=== PATIENT | female | born 1990 | race Caucasian/White ===

== ENCOUNTER 2017-04-06 19:43 | Emergency (ER) | payer OTHER ==
[~2017-04-06] VITALS: Ht 157.5 cm; Wt 45.5 kg
[~2017-04-06 19:43] MED LIST: BUPR2SUB SL; FRRS300 PO; PRENTAB26 PO
[2017-04-06 19:46] VITALS: Ht 157.5 cm; Wt 45.5 kg
[2017-04-06] MEDS ORDERED: BUPR8SUB19 SL (19:59)
[2017-04-06] MEDS ORDERED: CIPR1TAB11 PO (19:59)
[2017-04-06 20:11] LABS: URINE APPEARANCE CLEAR (CLEAR); URINE BILIRUBIN NEG (NEG); URINE COLOR YELLOW; URINE NITRITE NEG (NEG); URINE SPECIFIC GRAVITY 1.003 (1.000-1.030); UROBILINOGEN NEG (NEG); ZZUR CULT IF INDIC CLEAN CATCH NO
[2017-04-06 20:13] LABS: MANUAL MICROSCOPIC REQUIRED? NO; REVIEW REQ? NO
--- NOTE | 2017-04-06 20:52 | DIAGNOSTIC IMAGING REPORT ---
L-SPINE MIN 4 VIEWS ROUTINE HISTORY: Pain Left low back pain COMPARISON: None. FINDINGS: There is no fracture. Mild scoliosis. Disc spaces are preserved. IMPRESSION: Mild scoliosis. Otherwise negative study The above report was generated using voice recognition software. It may contain grammatical, syntax or spelling errors. Electronically signed by: Bladimir Garrison M.D. 04/06/2017 8:50 PM Dictated Date/Time: 04/06/2017 8:49 PM
[2017-04-06 21:00] VITALS: BP 127/89; PULSE 83; TEMP 37.1; O2SAT 100
--- NOTE | 2017-04-07 00:13 | EMERGENCY ROOM VISIT NOTE ---
History First contact with patient: 19:50 Chief Complaint: URINARY SYMPTOMS Stated Complaint: KIDNEYS IN PAIN AFTER DAYS OF UTI AND PILLS THAT D Nursing Triage Summary: Triage Notes: Patient states "I had a UTI for like a week. I went to [facility] in [place]. They gave me Cipro for it, the first day I threw up and got really sick and really hot. The next day I was still having UTI symptoms." Patient had hx ARF years ago. History of Present Illness The patient is a 27 year old female who presents to the Emergency Room with complaints of kidney pain for the past week. The patient states that she went to an urgent care clinic where she was given Cipro. The patient states that she had vomiting after taking Cipro, and did not complete the antibiotics. She is not complaining of dysuria, but does have urinary frequency. The patient rates her discomfort a 7/10. Review of Systems More than 10 systems were reviewed and otherwise negative with the exception of history of present illness. Past Medical/Surgical History No pertinent chronic medical disease Family History Cancer FH: heart disease FHx: lung disease Hypertension Social History Smoking Status: Light Tobacco Smoker Marital Status: Housing Status: lives with significant other Occupation Status: employed Current/Historical Medications Scheduled Buprenorphine Hcl (Subutex), 0.33 TAB SL TID Ciprofloxacin Tab (Cipro), 1 TAB PO Q12 Allergies Coded Allergies: Latex (Verified Allergy, Mild, RASH, 04/14/15) Physical Exam Vital Signs Date Time Temp Pulse Resp B/P (MAP) Pulse Ox O2 Delivery O2 Flow Rate FiO2 04/06/17 21:00 37.1 83 18 127/89 100 04/06/17 19:46 37.1 83 18 127/89 100 Room Air Pain Rating (0-10): 0 Physical Exam VITALS: Vitals are noted on the nurse's note and reviewed by myself. Vital signs stable. GENERAL: Well-developed, well-nourished, white female, who is in no acute distress and resting comfortably. Patient is cooperative with the examination. HEAD: Normocephalic atraumatic. HEART: Regular rate and rhythm without murmurs gallops or rubs. LUNGS: Clear to auscultation bilaterally without wheezes, rales or rhonchi. No retractions or accessory muscle use. ABDOMEN: Positive normal bowel sounds x 4. Soft, nontender, without masses or organomegaly. No guarding or rebound tenderness. No CVA tenderness. MUSCULOSKELETAL: No muscle atrophy, erythema, or edema noted. Full range of motion without joint tenderness in all extremities. Negative straight leg raise bilateral. Normal DTRs Medical Decision & Procedures ER Provider Diagnostic Interpretation: L-SPINE MIN 4 VIEWS ROUTINE HISTORY: Pain Left low back pain COMPARISON: None. FINDINGS: There is no fracture. Mild scoliosis. Disc spaces are preserved. IMPRESSION: Mild scoliosis. Otherwise negative study Laboratory Results Test 04/06/17 19:50 Urine Color YELLOW Urine Appearance CLEAR (CLEAR) Urine pH 8.0 (4.5-7.5) Urine Specific [place] 1.003 (1.000-1.030) Urine Protein NEG (NEG) Urine Glucose (UA) NEG (NEG) Urine Ketones NEG (NEG) Urine Occult Blood NEG (NEG) Urine Nitrite NEG (NEG) Urine Bilirubin NEG (NEG) Urine Urobilinogen NEG (NEG) Urine Leukocyte Esterase NEG (NEG) Urine Test NEG (NEG) ED Course Physical exam and history were performed. Nursing notes, EMR, and Medication List were personally reviewed. Patient appears to have 'kidney pain' and a UTI for the past week. The patient identifies her maximal pain at her left side SI joint, much lower than the anatomic region where her kidney would be. She insists this is where her kidney pain is, and feels that she has a UTI. Urinalysis was performed and was negative for . She also is without evidence of UTI. I did perform plain films of the low back, and these were also unremarkable. Overall I suspect the patient's symptoms are musculoskeletal in nature and not reflective of an infectious process. She is on Subutex, and despite this did ask for pain medication. I explained that [id number] NSAIDs was appropriate, and that she may continue her Subutex as prescribed. The patient was dissatisfied with this and was angry that I was not providing her additional medication. The patient requested immediate discharge, and this was performed. She was invited back to the ER with any new, worsening, or concerning symptoms. The chart was completed utilizing [employer] Voice Recognition Software. Grammatical errors, random word insertions, pronoun errors, and incomplete sentences are an occasional consequence of this system due to software limitations, ambient noise, and hardware issues. Any formal questions or concerns about the content, text, or information contained within the body of this dictation should be directly addressed to the provider for clarification. . Medical Decision Differential diagnosis includes, but is not limited to: Low back pain, UTI, pyelonephritis, drug-seeking, ureteral calculi, DESK[employer] PUBL[employer]ING [employer] etiology, and others Impression Primary Impression: Low back pain Additional Impression: Symptoms involving urinary system Departure Information Dispostion Home / Self-Care Condition GOOD Forms HOME CARE DOCUMENTATION FORM, IMPORTANT VISIT INFORMATION Patient Instructions [facility] Additional Instructions You were seen and evaluated today on an emergency basis only. This is not a substitute for, or an effort to provide, complete comprehensive medical care. It is not possible to recognize and treat all injuries or illnesses in a single emergency department visit. For this reason it is recommended that you followup with your primary care physician next week for ongoing care and evaluation. For baseline pain relief you may alternate ibuprofen and acetaminophen every 4 hours for pain control. Take 600 mg ibuprofen (Advil) and then 4 hours later take 1000 mg acetaminophen (Tylenol). Do not take more than 3000 mg acetaminophen in a single day. You are welcome to return to the emergency department anytime with new, worsening, or concerning symptoms. Problem Qualifiers
== END 2017-04-06 21:03 | disposition home or self-care (01) ==
LOC: C.EDB 19:44 → C.EDD 21:03
DX: M54.5 Low back pain (principal); R39.9 Unspecified symptoms and signs involving the genitourinary system; F17.200 Nicotine dependence, unspecified, uncomplicated; Z82.49 Family history of ischemic heart disease and other diseases of the circulatory system

== ENCOUNTER 2018-04-30 11:46 | Emergency (ER) | payer OTHER ==
[~2018-04-30] VITALS: Ht 157.5 cm; Wt 50.2 kg
[~2018-04-30 11:46] MED LIST changes: -BUPR2SUB SL; +BUPR8SUB19 SL; +CIPR1TAB11 PO; -FRRS300 PO; -PRENTAB26 PO
[2018-04-30 11:49] VITALS: TEMP 36.7; Ht 157.5 cm; Wt 50.2 kg
[2018-04-30] MEDS ORDERED: SODIUM CHLORIDE 0.9% 1000ML 1,000 ML IV STA (12:07)
[2018-04-30] MEDS ORDERED: ONDANSETRON INJ 2 MG/ML 2 ML VIAL IV STA (12:42)
[2018-04-30 12:43] LABS: BASO % 0.6 %; BASO ABS # 0.04 K/uL (0-0.2); EOS % 3.3 %; EOS ABS # 0.23 K/uL (0-0.5); HEMATOCRIT 40.1 % (37-47); HEMOGLOBIN 13.5 g/dL (12.0-16.0); IG# 0.03 K/uL (0.00-0.02); LYMPH % 34.4 %; LYMPH ABS # 2.39 K/uL (1.2-3.4); MEAN CELL VOLUME 93.9 fL (80-100); MEAN CORPUSCULAR HEMOGLOBIN 31.6 pg (25-34); MEAN CORPUSCULAR HGB CONC 33.7 g/dl (32-36); MEAN PLATELET VOLUME 10.5 fL (7.4-10.4); MONO % 9.8 %; MONO ABS # 0.68 K/uL (0.11-0.59); NEUT % 51.5 %; NEUT ABS # 3.57 K/uL (1.4-6.5); PLATELET COUNT 238 K/uL (130-400); RED CELL DISTRIBUTION WIDTH CV 13.7 % (11.5-14.5); RED CELL DISTRIBUTION WIDTH SD 46.8 fL (36.4-46.3); WHITE BLOOD COUNT 6.94 K/uL (4.8-10.8)
--- NOTE | 2018-04-30 12:46 | EMERGENCY ROOM VISIT NOTE ---
ED Visit Note First contact with patient: 11:54 I have seen and examined this patient with Selma Garrison and generally agree with the treatment plan as discussed. Current/Historical Medications Scheduled Buprenorphine Hcl (Subutex), 0.33 TAB SL TID Ciprofloxacin Tab (Cipro), 1 TAB PO Q12 Allergies Coded Allergies: Latex (Verified Allergy, Mild, RASH, 04/14/15) Vital Signs Date Time Temp Pulse Resp B/P (MAP) Pulse Ox O2 Delivery O2 Flow Rate FiO2 04/30/18 11:49 36.7 98 20 112/75 97 Room Air Laboratory Results 04/30/18 12:25 Red Blood Count 4.27, Mean Corpuscular Volume 93.9, Mean Corpuscular Hemoglobin 31.6, Mean Corpuscular Hemoglobin Concent 33.7, Mean Platelet Volume 10.5, Neutrophils (%) (Auto) 51.5, Lymphocytes (%) (Auto) 34.4, Monocytes (%) (Auto) 9.8, Eosinophils (%) (Auto) 3.3, Basophils (%) (Auto) 0.6, Neutrophils # (Auto) 3.57, Lymphocytes # (Auto) 2.39, Monocytes # (Auto) 0.68, Eosinophils # (Auto) 0.23, Basophils # (Auto) 0.04 Test 04/30/18 12:20 04/30/18 12:25 White Blood Count 6.94 K/uL (4.8-10.8) Red Blood Count 4.27 M/uL (4.2-5.4) Hemoglobin 13.5 g/dL (12.0-16.0) Hematocrit 40.1 % (37-47) Mean Corpuscular Volume 93.9 fL (80-100) Mean Corpuscular Hemoglobin 31.6 pg (25-34) Mean Corpuscular Hemoglobin Concent 33.7 g/dl (32-36) Platelet Count 238 K/uL (130-400) Mean Platelet Volume 10.5 fL (7.4-10.4) Neutrophils (%) (Auto) 51.5 % Lymphocytes (%) (Auto) 34.4 % Monocytes (%) (Auto) 9.8 % Eosinophils (%) (Auto) 3.3 % Basophils (%) (Auto) 0.6 % Neutrophils # (Auto) 3.57 K/uL (1.4-6.5) Lymphocytes # (Auto) 2.39 K/uL (1.2-3.4) Monocytes # (Auto) 0.68 K/uL (0.11-0.59) Eosinophils # (Auto) 0.23 K/uL (0-0.5) Basophils # (Auto) 0.04 K/uL (0-0.2) RDW Standard Deviation 46.8 fL (36.4-46.3) RDW Coefficient of Variation 13.7 % (11.5-14.5) Immature Granulocyte % (Auto) 0.4 % Immature Granulocyte # (Auto) 0.03 K/uL (0.00-0.02) Medications Administered Medications (Trade) Dose Ordered Sig/Keshawn Route Start Time Stop Time Status Last Admin Dose Admin Sodium Chloride 1,000 ml @ 999 mls/hr Q1H1M STAT IV 04/30/18 12:07 04/30/18 13:07 04/30/18 12:30 999 MLS/HR Departure Information Referrals Viviana Aldrich DO (PCP) [facility] Instructions [facility]
[2018-04-30 13:04] LABS: ALBUMIN 3.8 gm/dl (3.4-5.0); CALCIUM 8.8 mg/dl (8.5-10.1); CREATININE 0.78 mg/dl (0.60-1.20); POTASSIUM 3.9 mmol/L (3.5-5.1); TOTAL PROTEIN 7.5 gm/dl (6.4-8.2)
[2018-04-30 14:04] VITALS: BP 111/65; PULSE 69; O2SAT 99
--- NOTE | 2018-04-30 14:05 | DIAGNOSTIC IMAGING REPORT ---
PELVIC ULTRASOUND CLINICAL HISTORY: Pelvic pain. COMPARISON STUDY: None. TECHNIQUE: Transabdominal and transvaginal sonography of the pelvis was performed. FINDINGS: The uterus measures 7.4 x 4.1 x 3 cm. Endometrium measures 5 mm in thickness. Incidental note is made of a few small nabothian cysts. The ovaries are normal. The right ovary measures 3.4 x 2.8 x 1.9 cm and the left ovary measures 2.3 x 2.4 x 1.6 cm. Color flow is identified within each ovary. There is no adnexal mass or free fluid. IMPRESSION: Unremarkable pelvic ultrasound. Electronically signed by: Demetris Gonzalez M.D. 04/30/2018 2:04 PM Dictated Date/Time: 04/30/2018 1:55 PM
--- NOTE | 2018-04-30 14:05 | DIAGNOSTIC IMAGING REPORT ---
PA CHEST WITH ABDOMINAL SERIES CLINICAL HISTORY: Generalized abdominal pain. FINDINGS: A PA chest radiograph is obtained. No prior studies are available for comparison at the time of dictation. The cardiomediastinal silhouette is unremarkable. The lungs and pleural spaces are clear. No pneumothorax is seen. The bony thorax is grossly intact. Supine and erect abdominal radiographs are compared to study dated 04/06/2017. There is a nonobstructed abdominal bowel gas pattern. No evidence of intraperitoneal free air is seen. There are no abnormal abdominal calcifications. Small phleboliths are observed in the pelvis. The lumbosacral spine and bony pelvis appear intact. IMPRESSION: 1. No active disease in the chest. 2. Nonobstructed abdominal bowel gas pattern. Electronically signed by: Jeison Dye M.D. 04/30/2018 2:04 PM Dictated Date/Time: 04/30/2018 1:53 PM
[2018-04-30] MEDS ORDERED: CHLO50TA6 PO (14:13)
[2018-04-30] MEDS ORDERED: 5-HT1CAP PO (14:13)
[2018-04-30] MEDS ORDERED: CYAN100073 PO (14:13)
[2018-04-30] MEDS ORDERED: ONDA4TAB10 SL (14:24)
--- NOTE | 2018-04-30 14:25 | EMERGENCY ROOM VISIT NOTE ---
History First contact with patient: 11:54 Chief Complaint: ABDOMINAL PAIN Stated Complaint: SEVERE ABD PAIN History of Present Illness The patient is a 28 year old female who presents to the Emergency Room with complaints of severe abdominal pain. The patient states that she has had abdominal pain for months. She is being seen by her PCP at [place] for her ongoing abdominal pain. The patient denies any fever, constipation, hematochezia or melena. The patient states that her stools are soft. The patient admits to nausea but denies any vomiting. The patient states that she came to the emergency room today because she had severe abdominal pain and pelvic pain which doubled her over and she could not stand up. She describes it as a stabbing pain. She rated it at a 10 out of 10. The patient states that she had some lab work performed for her family doctor but she did not get the results. She thinks he was mainly hormones levels because her menses is really light. The patient denies any vaginal discharge. She denies any heavy bleeding or spotting. The patient states that the pain has now subsided but she still is nauseated. Review of Systems 10 system review was performed and was negative unless stated otherwise history of present illness. Family History Cancer FH: heart disease FHx: lung disease Hypertension Social History Smoking Status: Current Every Day Smoker Alcohol Use: occasionally Marital Status: single Housing Status: lives with significant other Occupation Status: employed Current/Historical Medications Scheduled 7-Xzz-Srjkbsjl-Niacin-Vitamin (5-Htp), 1 CAP PO DAILY Buprenorphine Hcl (Subutex), 0.33 TAB SL TID Chlorpromazine Hcl (Thorazine), 50 MG PO TID Cyanocobalamin (B12), 1 TAB PO DAILY Physical Exam Vital Signs Date Time Temp Pulse Resp B/P (MAP) Pulse Ox O2 Delivery O2 Flow Rate FiO2 04/30/18 14:04 69 18 111/65 99 Room Air 04/30/18 11:49 36.7 98 20 112/75 97 Room Air Physical Exam GENERAL: 28-year-old white female appears in no acute distress. MENTAL Status: Alert and oriented 3. MOUTH: Mucosa is moist NECK: Supple, no lymphadenopathy noted. No carotid bruits noted. LUNGS: Clear auscultation without wheezes rales or rhonchi. CARDIAC: Regular rate and rhythm without murmur. Pulses is full and equal throughout. BACK: No CVA tenderness noted. ABDOMEN: Positive bowel sounds all 4 quadrants. Soft, generalized tenderness to palpation without any specific masses or organomegaly. EXTREMITIES: No cyanosis or edema noted. Medical Decision & Procedures ER Provider Diagnostic Interpretation: PA CHEST WITH ABDOMINAL SERIES CLINICAL HISTORY: Generalized abdominal pain. FINDINGS: A PA chest radiograph is obtained. No prior studies are available for comparison at the time of dictation. The cardiomediastinal silhouette is unremarkable. The lungs and pleural spaces are clear. No pneumothorax is seen. The bony thorax is grossly intact. Supine and erect abdominal radiographs are compared to study dated 04/06/2017. There is a nonobstructed abdominal bowel gas pattern. No evidence of intraperitoneal free air is seen. There are no abnormal abdominal calcifications. Small phleboliths are observed in the pelvis. The lumbosacral spine and bony pelvis appear intact. IMPRESSION: 1. No active disease in the chest. 2. Nonobstructed abdominal bowel gas pattern. Electronically signed by: Jeison Dye M.D. PELVIC ULTRASOUND CLINICAL HISTORY: Pelvic pain. COMPARISON STUDY: None. TECHNIQUE: Transabdominal and transvaginal sonography of the pelvis was performed. FINDINGS: The uterus measures 7.4 x 4.1 x 3 cm. Endometrium measures 5 mm in thickness. Incidental note is made of a few small nabothian cysts. The ovaries are normal. The right ovary measures 3.4 x 2.8 x 1.9 cm and the left ovary measures 2.3 x 2.4 x 1.6 cm. Color flow is identified within each ovary. There is no adnexal mass or free fluid. IMPRESSION: Unremarkable pelvic ultrasound. Electronically signed by: Demetris Gonzalez M.D. 04/30/2018 2:04 PM Dictated Date/Time: 04/30/2018 1:55 PM Laboratory Results 04/30/18 12:25 Red Blood Count 4.27, Mean Corpuscular Volume 93.9, Mean Corpuscular Hemoglobin 31.6, Mean Corpuscular Hemoglobin Concent 33.7, Mean Platelet Volume 10.5, Neutrophils (%) (Auto) 51.5, Lymphocytes (%) (Auto) 34.4, Monocytes (%) (Auto) 9.8, Eosinophils (%) (Auto) 3.3, Basophils (%) (Auto) 0.6, Neutrophils # (Auto) 3.57, Lymphocytes # (Auto) 2.39, Monocytes # (Auto) 0.68, Eosinophils # (Auto) 0.23, Basophils # (Auto) 0.04 04/30/18 12:25 Test 04/30/18 12:20 04/30/18 12:25 Urine Color YELLOW Urine Appearance CLOUDY (CLEAR) Urine pH 6.0 (4.5-7.5) Urine Specific [place] 1.005 (1.000-1.030) Urine Protein NEG (NEG) Urine Glucose (UA) NEG (NEG) Urine Ketones NEG (NEG) Urine Occult Blood NEG (NEG) Urine Nitrite NEG (NEG) Urine Bilirubin NEG (NEG) Urine Urobilinogen NEG (NEG) Urine Leukocyte Esterase NEG (NEG) Urine WBC (Auto) 1-5 /hpf (0-5) Urine RBC (Auto) 0-4 /hpf (0-4) Urine Hyaline Casts (Auto) 0 /lpf (0-5) Urine Epithelial Cells (Auto) 10-20 /lpf (0-5) Urine Bacteria (Auto) NEG (NEG) White Blood Count 6.94 K/uL (4.8-10.8) Red Blood Count 4.27 M/uL (4.2-5.4) Hemoglobin 13.5 g/dL (12.0-16.0) Hematocrit 40.1 % (37-47) Mean Corpuscular Volume 93.9 fL (80-100) Mean Corpuscular Hemoglobin 31.6 pg (25-34) Mean Corpuscular Hemoglobin Concent 33.7 g/dl (32-36) Platelet Count 238 K/uL (130-400) Mean Platelet Volume 10.5 fL (7.4-10.4) Neutrophils (%) (Auto) 51.5 % Lymphocytes (%) (Auto) 34.4 % Monocytes (%) (Auto) 9.8 % Eosinophils (%) (Auto) 3.3 % Basophils (%) (Auto) 0.6 % Neutrophils # (Auto) 3.57 K/uL (1.4-6.5) Lymphocytes # (Auto) 2.39 K/uL (1.2-3.4) Monocytes # (Auto) 0.68 K/uL (0.11-0.59) Eosinophils # (Auto) 0.23 K/uL (0-0.5) Basophils # (Auto) 0.04 K/uL (0-0.2) RDW Standard Deviation 46.8 fL (36.4-46.3) RDW Coefficient of Variation 13.7 % (11.5-14.5) Immature Granulocyte % (Auto) 0.4 % Immature Granulocyte # (Auto) 0.03 K/uL (0.00-0.02) Anion Gap 3.0 mmol/L (3-11) Est Creatinine Clear Calc Drug Dose 84.2 ml/min Estimated GFR () 119.1 Estimated GFR (Non- 102.7 BUN/Creatinine Ratio 6.3 (10-20) Calcium Level 8.8 mg/dl (8.5-10.1) Total Bilirubin 0.4 mg/dl (0.2-1) Direct Bilirubin 0.1 mg/dl (0-0.2) Aspartate Amino Transf (AST/SGOT) 10 U/L (15-37) Alanine Aminotransferase (ALT/SGPT) 14 U/L (12-78) Alkaline Phosphatase 47 U/L (45-117) Total Protein 7.5 gm/dl (6.4-8.2) Albumin 3.8 gm/dl (3.4-5.0) Lipase 169 U/L (73-393) Medications Administered Medications (Trade) Dose Ordered Sig/Keshawn Route Start Time Stop Time Status Last Admin Dose Admin Sodium Chloride 1,000 ml @ 999 mls/hr Q1H1M STAT IV 04/30/18 12:07 04/30/18 13:07 DC 04/30/18 12:30 999 MLS/HR Ondansetron HCl (Zofran Inj) 4 mg NOW STAT IV 04/30/18 12:42 04/30/18 12:43 DC 04/30/18 12:46 4 MG ED Course Patient was evaluated. Patient's EMR medication list were reviewed. IV access was obtained. The patient was given Zofran 4 mg IV push for nausea. She was given a liter of normal saline wide open. CBC and differential, renal profile, LFTs and lipase levels was ordered. Urinalysis was ordered. Urine collection for was ordered. Abdominal series x-ray as well as pelvic ultrasound was ordered and interpreted by the radiologist and myself as above without any acute findings on either.. Labs are reviewed and were unremarkable. Urine collection for was negative. Urinalysis was negative. Patient was informed of the findings. She was requesting a CAT scan. I discussed with the patient I do not feel that a CAT scan at this point was warranted. The patient has been experiencing abdominal pain intermittently for months. She did not have any specific point tenderness. Especially due to the patient's age and the radiation involved with getting a CAT scan. The patient was discharged home in stable condition. Medical Decision Differential diagnosis include ileus, small bowel obstruction, acute appendicitis, colitis, ovarian cysts, ovarian torsion [place] Drug Monitoring Program Search Results: patient reviewed within database Medication Reconcilliation Current Medication List: was personally reviewed by mn Blood Pressure Screening Patient's blood pressure: Normal blood pressure Impression Primary Impression: Generalized abdominal pain of unknown etiology Departure Information Dispostion Home / Self-Care Condition GOOD Prescriptions Ondasetron Odt (ZOFRAN ODT) 4 Mg Tab 4 MG SL Q6H for Nausea, #10 TAB Prov: Selma Garrison, JOSE MANUEL 04/30/18 Referrals Viviana Aldrich DO (PCP) Forms HOME CARE DOCUMENTATION FORM, IMPORTANT VISIT INFORMATION Patient Instructions [facility] Additional Instructions Push fluids. Take Zofran as needed for nausea. Keep scheduled appointment with your PCP on for reevaluation. If you experience any high fevers, no bowel movement for over 48 hours, severe abdominal pain return the ER immediately.
== END 2018-04-30 14:33 | disposition home or self-care (01) ==
LOC: C.EDB 11:47 → C.EDA 14:33
DX: R10.9 Unspecified abdominal pain (principal); R11.0 Nausea; F17.200 Nicotine dependence, unspecified, uncomplicated; Z79.899 Other long term (current) drug therapy; Z91.040 Latex allergy status